=== PATIENT | female | born 1955 | race Caucasian/White ===

== ENCOUNTER 2016-11-09 14:28 | Emergency (ER) | payer BC ==
[~2016-11-09] VITALS: Ht 152.4 cm; Wt 77.0 kg
[2016-11-09] MEDS ORDERED: METO-293 PO (15:01)
[2016-11-09] MEDS ORDERED: NAPR-681 PO (15:01)
[2016-11-09] MEDS ORDERED: METH-24 PO (15:01)
[2016-11-09] MEDS ORDERED: BUSP30TA2 PO (15:01)
[2016-11-09 19:55] VITALS: BP 119/73
== END 2016-11-09 19:57 | disposition home or self-care (01) ==
LOC: ER 14:30
DX: M25.561 Pain in right knee (principal); M79.89 Other specified soft tissue disorders; I10 Essential (primary) hypertension
CPT/HCPCS: 99283